=== PATIENT | male | born 1990 | race Caucasian/White ===

== ENCOUNTER 2018-11-07 22:40 | Emergency (ER) | payer OTHER ==
[~2018-11-07] VITALS: Ht 177.8 cm; Wt 117.9 kg
[2018-11-07] MEDS ORDERED: RITALIN10 MG PO (23:06)
[2018-11-08 00:02] LABS: ABSOLUTE NEUTROPHILS 3.4 thou/uL (1.4-8.2); BASOPHILS 0.9 % (0.0-2.0); EOSINOPHILS 1.8 % (0.0-3.0); HEMATOCRIT 48.4 % (42.0-52.0); HEMOGLOBIN 16.6 gm/dL (14.0-18.0); LYMPHOCYTES 30.7 % (24.0-44.0); MCH 29.4 pg (26.0-34.0); MCHC 34.2 g/dL (28.0-37.0); MCV 85.9 fL (80.0-100.0); MONOCYTES 11.8 % (1.0-8.0); PLATELET COUNT 198 thou/uL (150-400); POLYS 54.8 % (36.0-66.0); RBC 5.64 mil/uL (4.50-6.00); RDW 12.8 % (10.5-14.5); WBC 6.2 thou/uL (4.0-11.0)
[2018-11-08 00:21] LABS: CALCIUM 8.7 mg/dL (8.5-10.1); CREATININE 1.3 mg/dL (0.7-1.3)
[2018-11-08 00:24] LABS: INR 1.2; PROTIME 12.2 Seconds (9.3-11.4)
[2018-11-08 00:27] LABS: ALBUMIN 3.9 g/dL (3.4-5.0); DIRECT BILIRUBIN 0.2 mg/dL (<0.1-0.3); TOTAL BILIRUBIN 1.1 mg/dL (<0.1-1.0)
[2018-11-08] MEDS ORDERED: BENTYL 20 MG TA20 M1 PO (01:52)
[2018-11-08] MEDS ORDERED: ZOFRAN ODT4 MG PO (01:52)
[2018-11-08 02:03] VITALS: BP 115/59
== END 2018-11-08 02:04 | disposition home or self-care (01) ==
LOC: ER 22:40
PROVIDERS: Emergency Medicine
DX: R19.7 Diarrhea, unspecified (principal); K92.2 Gastrointestinal hemorrhage, unspecified; Z88.0 Allergy status to penicillin; Z88.2 Allergy status to sulfonamides